=== PATIENT | female | born 1970 | race Caucasian/White ===

== ENCOUNTER 2016-08-20 08:07 | Emergency (ER) | payer OTHER ==
[~2016-08-20] VITALS: Ht 167.6 cm; Wt 99.8 kg
[2016-08-20] MEDS ORDERED: ADV250INH INH (08:22)
[2016-08-20] MEDS ORDERED: CETI10TA PO (08:22)
[2016-08-20] MEDS ORDERED: MONT10TA2 PO (08:22)
[2016-08-20] MEDS ORDERED: HYDR12.55 PO (08:22)
[2016-08-20] MEDS ORDERED: ADAL60TA PO (08:22)
[2016-08-20 08:57] LABS: BASO % 0.5 % (0.0-1.0); EOS # 0.7 K/mm3 (0.0-0.50); EOS % 8.5 % (0.0-3.0); LARGE UNSTAINED CELL # 0.2 K/mm3 (0.0-0.4); LARGE UNSTAINED CELL % 2.6 % (0.0-4.0); LYMPH # 1.8 K/mm3 (1.5-4.5); LYMPH % 22.9 % (24.0-44.0); MEAN CORPUSCULAR HEMOGLOBIN 30.9 pg (27.0-33.0); MEAN CORPUSCULAR HGB CONC 32.5 g/dl (32.0-36.5); MEAN CORPUSCULAR VOLUME 95.2 fl (80.0-96.0); MONO # 0.4 K/mm3 (0.0-0.8); MONO % 5.5 % (0.0-5.0); NEUTROPHILS # 4.8 K/mm3 (1.8-7.7); NEUTROPHILS % 59.9 % (36.0-66.0); PLATELET COUNT, AUTOMATED 327 k/mm3 (150-450); RED CELL DISTRIBUTION WIDTH 12.8 % (11.5-14.5)
[2016-08-20 09:24] LABS: ANION GAP 12 MEQ/L (8-16); BLOOD UREA NITROGEN 12 MG/DL (7-18); CALCIUM LEVEL 8.4 MG/DL (8.5-10.1); CARBON DIOXIDE LEVEL 25 MEQ/L (21-32); CHLORIDE LEVEL 103 MEQ/L (98-107); CREATININE FOR GFR 0.63 MG/DL (0.55-1.02); GLOMERULAR FILTRATION RATE > 60.0 (>58); GLUCOSE, FASTING 109 MG/DL (70-105); POTASSIUM SERUM 3.4 MEQ/L (3.5-5.1); SODIUM LEVEL 140 MEQ/L (136-145)
[2016-08-20 10:38] VITALS: BP 136/85
--- NOTE | 2016-08-20 10:42 | REP ---
Portable chest x-ray: Single view. History: Chest pain. Comparison chest x-ray November 26, 2014. Findings: EKG monitoring electrodes overlie the chest. The lungs are symmetrically aerated and remain clear. Pleural angles are sharp. Cardiomediastinal silhouette is unremarkable and unchanged. Impression: No active disease. Signed by Brandon Douglass MD 08/20/2016 10:58 A
--- NOTE | 2016-08-20 19:59 | ECGEPIP ---
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
== END 2016-08-20 10:40 | disposition home or self-care (01) ==
LOC: M ED 09:47
DX: R00.2 Palpitations (principal); R05 Cough

== ENCOUNTER → 2016-09-06 | Outpatient (CLI) | payer OTHER ==
[~2016-09-06] MED LIST: ADAL60TA PO; ADV250INH INH; CETI10TA PO; HYDR12.55 PO; MONT10TA2 PO
--- NOTE | 2016-09-06 19:25 | REP ---
CT study of the chest without IV contrast: History: Chronic cough, increased mucus production, night sweats. Comparison chest x-ray 08/20/2016. CT findings: There is an area of plate-like atelectasis in the anterobasal segment of the left lower lobe. This segmental bronchus shows amputation of its air column consistent with endobronchial inspissated mucoid material. Similarly, the segmental bronchus of the right lower lobe more posteriorly shows inspissated material filling its lumen. No atelectasis is seen in its distribution. There is some fibrosis versus atelectasis in the right middle lobe. No other endobronchial disease is appreciated. There is no evidence of bronchiectasis by CT criteria. No pleural or pericardial effusion is seen. No hilar or mediastinal mass or adenopathy is observed. There is a small accessory splenule beneath the spleen. There are clips in the gallbladder fossa. The visualized upper abdominal structures are otherwise unremarkable. In the lung young there are numerous small noncalcified pulmonary nodules. There were to calcified pulmonary nodules as well on the right. The noncalcified pulmonary nodules are predominately peripheral and range in size up to 6 mm. They are too numerous to count. No bony destructive lesion is seen. Impression: 1. Inspissated endobronchial material seen into segmental bronchi in the left lower lobe. 2. Innumerable noncalcified pulmonary nodules scattered throughout the lung parenchyma ranging up to 6 mm in size uncertain etiology. 3. Plate-like atelectasis left lower lobe. Consider pulmonary medicine evaluation. Signed by Brandon Douglass MD 09/07/2016 08:55 A
--- NOTE | 2016-09-07 08:53 | REP ---
MAXILLOFACIAL CT WITHOUT CONTRAST: HISTORY: Chronic cough. Mucosal thickening is present in the sinuses. There is complete opacification of the left frontal sinus. There is almost complete opacification of the ethmoid and left maxillary sinuses. Moderate mucosal thickening is present in the right maxillary sinus. Minimal mucosal thickening is present in the sphenoid and right frontal sinuses. Mucosal thickening involves the osteomeatal units. The middle and inferior nasal turbinates are partially paradoxical. There is minimal deviation of the nasal septum to the right. A spur is present arising from the left side of the nasal septum. The spur abuts the left middle nasal turbinate. The cribriform plate, medial roberto, of the orbits and optic canals are intact. The carotid canals form a segment of the posterolateral roberto of the sphenoid sinus. The sphenoid sinus septum inserts into the right internal carotid canal wall. IMPRESSION: Sinus mucosal thickening as described above. Signed by Clyde Cohen MD 09/07/2016 08:58 A
== END ==
LOC: M RAD 16:31
PROVIDERS: ATTEND Family Medicine
DX: R91.8 Other nonspecific abnormal finding of lung field (principal); R05 Cough

== ENCOUNTER → 2016-09-13 | Outpatient (REF) | payer OTHER ==
[2016-09-18 00:06] LABS: BLASTOMYCES ANTIBODY LEVEL Negative (Neg:<1:1); CRYPTOCOCCUS ANTIGEN SER Negative (Negative); HISTOPLASMOSIS ANTIBODY Negative (Neg:<1:1)
== END ==
LOC: M LAB REF 17:22
PROVIDERS: ATTEND Internal Medicine Pulmonary Disease
DX: R91.8 Other nonspecific abnormal finding of lung field (principal)

== ENCOUNTER → 2016-09-15 | Outpatient (REF) | payer OTHER | LOC: M LAB REF 18:17 | PROVIDERS: ATTEND Internal Medicine Pulmonary Disease | DX: R91.8 Other nonspecific abnormal finding of lung field (principal); R05 Cough ==

== ENCOUNTER → 2016-10-26 | Outpatient (CLI) | payer OTHER ==
--- NOTE | 2016-10-26 08:35 | PFTRPT ---
Tech: Jovany CASTANEDA RRT Age: 46 Sex: Female Race: Height: 66.00 Inches Weight: 220.00 Lbs BSA: 2.08 Diagnosis: R91.8 TECH NOTES: Test meet the ATS standards for acceptability and repeatability. The patient was given four puffs of albuterol for postbronchodilator. PULMONARY FUNCTION REPORT ORDERING PROVIDER: Severiano Clemons M.D. DATE OF SERVICE: 10/26/16 SPIROMETRY: Pre and post bronchodilator study of excellent technical quality. The forced vital capacity is normal. The FEV1 is borderline in proportion. The obstructive index is, therefore, borderline, as well. FLOW VOLUME LOOP: The expiratory limb of the flow volume loop raises a question of some nonspecific flow rate reductions. No significant bronchodilator response is identified. LUNG VOLUMES: The total lung capacity is borderline elevated. The residual volume does suggest a degree of air trapping. DIFFUSION CAPACITY: The diffusion capacity, although reduced, is appropriate for alveolar volume. HEMOGLOBIN: The hemoglobin is acceptable at 15.5. AIRWAY MECHANICS: Airways resistance and conductance are normal. IMPRESSION: Nonspecific flow ate reduction, probably on the basis of small airways dysfunction with underlying air trapping. Mild reduction in the absolute diffusion capacity. No significant bronchodilator response. Please correlate clinically. MTDD
== END ==
LOC: M CARPUL 08:00
PROVIDERS: ATTEND Internal Medicine Pulmonary Disease
DX: R91.8 Other nonspecific abnormal finding of lung field (principal)

== ENCOUNTER → 2016-10-27 | Outpatient (CLI) | payer OTHER ==
--- NOTE | 2016-10-27 14:33 | REP ---
Clinical: Abnormalities on recent chest CT . Comparison: 08/20/2016 . Technique: PA and lateral. Findings: The mediastinum and cardiac silhouette are normal. The lung young are clear and without acute consolidation, effusion, or pneumothorax. The skeletal structures are intact and normal. Impression: No acute cardiopulmonary process is appreciated by radiographic evaluation. Signed by Jayro Lora MD 10/27/2016 02:24 P
== END ==
LOC: M SMT 13:58
PROVIDERS: ATTEND Internal Medicine Pulmonary Disease
DX: R91.8 Other nonspecific abnormal finding of lung field (principal)

== ENCOUNTER → 2017-02-08 | Outpatient (CLI) | payer OTHER ==
--- NOTE | 2017-02-08 08:25 | REP ---
Clinical: Follow-up pulmonary nodules. Comparison: 09/06/2016. Findings: The bilateral lung young are relatively well aerated and symmetric. The previously noted inspissated material in the central left subsegmental bronchus has resolved and the tracheobronchial tree appears completely patent. Scattered nodules measuring up to 4.5 mm are again identified bilaterally and remain relatively stable. Current examination demonstrates central calcification within few of the nodules suggesting sequelae of prior granulomatous disease. No new nodules, mass lesions or increase size to the previously noted nodules is appreciated. No focal consolidation, pleural effusion/reaction or pneumothorax. No significant adenopathy. Mediastinum demonstrates normal thoracic aorta and heart/pericardium. Surrounding musculoskeletal structures are intact. Limited evaluation of the upper abdomen demonstrates normal bilateral adrenal glands and evidence for prior cholecystectomy. Impression: 1. Current examination demonstrates stable appearance to the previously identified nodules without increase in size or quantity. Few nodules now demonstrate central calcification suggesting sequelae of prior granulomatous disease. Follow-up and 9 - 12 months may be warranted to ensure stability and benignity. 2. No new significant mediastinal or pleuroparenchymal process appreciated. Signed by Jayro Lora MD 02/08/2017 08:17 A
== END ==
LOC: M RAD 07:23
PROVIDERS: ATTEND Internal Medicine Pulmonary Disease
DX: R91.8 Other nonspecific abnormal finding of lung field (principal)

== ENCOUNTER → 2017-08-10 | Outpatient (CLI) | payer OTHER | LOC: M RAD 08:15 | DX: R91.8 Other nonspecific abnormal finding of lung field (principal) ==

== ENCOUNTER → 2018-02-15 | Outpatient (CLI) | payer OTHER | LOC: M RAD 08:05 | DX: R91.8 Other nonspecific abnormal finding of lung field (principal) | CPT/HCPCS: 71250 ==

== ENCOUNTER → 2018-06-29 | Outpatient (CLI) | payer OTHER ==
--- NOTE | 2018-06-29 15:23 | REP ---
Right hip: Two views. History: Pain. Findings: AP and frog-leg views of the right hip demonstrate mild inferior acetabular spurring. Femoral head is smooth and rounded and hip joint spaces preserved. Periarticular soft tissue is unremarkable. Impression: Mild osteoarthritis right hip. No acute bony abnormality. Electronically Signed by Brandon Douglass MD 06/29/2018 03:15 P
== END ==
LOC: M LRY 13:49
PROVIDERS: ATTEND Nurse Practitioner Family
DX: M16.11 Unilateral primary osteoarthritis, right hip (principal); M25.551 Pain in right hip

== ENCOUNTER → 2018-06-29 | Outpatient (CLI) | payer OTHER | LOC: M LRY 13:42 | PROVIDERS: ATTEND Nurse Practitioner Family | DX: M25.551 Pain in right hip (principal); Z53.8 Procedure and treatment not carried out for other reasons ==

== ENCOUNTER → 2018-08-15 | Outpatient (CLI) | payer OTHER ==
--- NOTE | 2018-08-15 19:45 | REP ---
Clinical: Follow up abnormal findings. Technique: Axial noncontrast images from the thoracic inlet to the upper abdomen with coronal and sagittal re-formations. Comparison: 02/15/2018, 09/06/2016. Findings: Small scattered noncalcified nodular densities are appreciated bilaterally without significant change from prior examination. Previously noted area of atelectasis at the anterior left lower lobe has resolved. No significant acute consolidation. No pleural effusion or pneumothorax. Tracheobronchial tree is patent. No significant axillary, hilar, or mediastinal adenopathy. Mediastinum demonstrates normal stable thoracic aorta, pulmonary vasculature and heart/pericardium. Surrounding musculoskeletal structures are intact without focal osseous abnormality. Limited upper abdomen demonstrates normal bilateral adrenal glands and evidence for prior cholecystectomy. Impression: Small scattered noncalcified nodules essentially unchanged from prior examination 08/22/2016. Findings likely represent noncalcified granulomas disease. Electronically Signed by Jayro Lora MD 08/15/2018 07:36 P
== END ==
LOC: M RAD 14:17
PROVIDERS: ATTEND Internal Medicine Pulmonary Disease
DX: R91.8 Other nonspecific abnormal finding of lung field (principal)

== ENCOUNTER → 2018-09-09 | Outpatient (CLI) | payer OTHER ==
[~2018-09-09] MED LIST changes: +BREO1INH3 PO; +HYDR-3363 PO; +IRBE150T14; +METH1TAB40 PO; +PYRI1TAB5 PO; +TESS100C PO; +TIZA4TAB4 PO
--- NOTE | 2018-09-09 10:23 | REP ---
Clinical: Cough . Comparison: 10/27/2016 . Technique: PA and lateral. Findings: The mediastinum and cardiac silhouette are normal. The lung young demonstrate chronic stable changes without acute consolidation, effusion, or pneumothorax. The skeletal structures are intact and normal. Impression: 1. No acute cardiopulmonary process. Electronically Signed by Jayro Lora MD 09/09/2018 10:14 A
== END ==
LOC: M LRY 10:00
PROVIDERS: ATTEND Physician Assistant
DX: R05 Cough (principal); R52 Pain, unspecified

== ENCOUNTER → 2018-09-09 | Outpatient (REF) | payer OTHER | LOC: M SFHCLERA 10:19 | PROVIDERS: ATTEND Physician Assistant | DX: R39.9 Unspecified symptoms and signs involving the genitourinary system (principal) ==

== ENCOUNTER 2018-09-11 09:20 | Emergency (ER) | payer OTHER ==
[~2018-09-11] VITALS: Ht 167.6 cm; Wt 105.7 kg
[~2018-09-11 09:20] MED LIST changes: -BREO1INH3 PO; -HYDR-3363 PO; -IRBE150T14; -METH1TAB40 PO; -PYRI1TAB5 PO; -TESS100C PO; -TIZA4TAB4 PO
[2018-09-11] MEDS ORDERED: BREO1INH3 PO (09:31)
[2018-09-11] MEDS ORDERED: METH1TAB40 PO (09:31)
[2018-09-11] MEDS ORDERED: HYDR-3363 PO (09:31)
[2018-09-11] MEDS ORDERED: TIZA4TAB4 PO (09:31)
[2018-09-11] MEDS ORDERED: IRBE150T14 (09:57)
[2018-09-11] MEDS ORDERED: IPRATROPIUM 0.5MG/ALBUTEROL 2.5MG INH SOL UD 3ML (DUONEB)(J7620) NEB PRN (10:00)
[2018-09-11 10:28] LABS: URINE PREG TEST NEGATIVE (NEGATIVE)
--- NOTE | 2018-09-11 10:46 | REP ---
Lumbar spine five views: There are no comparisons. Vertebral body heights and alignment are normal. There is a bridging osteophyte anterolaterally on the right at at L 03/04, compatible with degenerative disc disease. There is disc space narrowing and L5 S1 compatible with degenerative disc disease. The disc spaces are otherwise unremarkable. There are Schmorl's nodes in the inferior endplate of L2, superior and and inferior end plates of L3, inferior endplate of L4 and superior endplate of L5. There is no spondylolysis. There is no spondylolisthesis. The pedicles and facets are unremarkable. The sacroiliac articulations are unremarkable. There are surgical clips in the abdominal right upper quadrant and in the abdomen on the right. Impression: Degenerative disc disease as described. Schmorl's nodes as described. Electronically Signed by Richi Castaneda MD 09/11/2018 10:38 A
[2018-09-11] MEDS ORDERED: TESS100C PO (11:04)
[2018-09-11] MEDS ORDERED: PYRI1TAB5 PO (11:04)
[2018-09-11 11:10] VITALS: BP 167/91
== END 2018-09-11 11:14 | disposition home or self-care (01) ==
LOC: M ED 09:20
DX: N28.89 Other specified disorders of kidney and ureter (principal); J06.9 Acute upper respiratory infection, unspecified; M54.5 Low back pain; N39.3 Stress incontinence (female) (male); I10 Essential (primary) hypertension; J45.909 Unspecified asthma, uncomplicated; Z87.440 Personal history of urinary (tract) infections; Z87.442 Personal history of urinary calculi; J32.9 Chronic sinusitis, unspecified; M51.36 Other intervertebral disc degeneration, lumbar region; M51.37 Other intervertebral disc degeneration, lumbosacral region; M51.46 Schmorl's nodes, lumbar region; Z79.899 Other long term (current) drug therapy; Z88.8 Allergy status to other drugs, medicaments and biological substances; Z88.5 Allergy status to narcotic agent; Z88.6 Allergy status to analgesic agent

== ENCOUNTER → 2018-11-02 | Outpatient (CLI) | payer OTHER ==
[~2018-11-02] MED LIST changes: +BREO1INH3 PO; +HYDR-3363 PO; +IRBE150T14; +METH1TAB40 PO; +PYRI1TAB5 PO; +TESS100C PO; +TIZA4TAB4 PO
--- NOTE | 2018-11-02 09:01 | REP ---
Maxillofacial CT without contrast History: Chronic pansinusitis Comparison: 09/06/2016 Mucosal thickening is present in the sinuses. There is complete opacification of the sinuses. Mucosal thickening involves the ostiomeatal units. The middle and inferior nasal turbinates are partially paradoxical. There is minimal deviation of the nasal septum to the right. A spur is present arising from the left side of the nasal septum. The spur abuts the left middle nasal turbinate. The cribriform plate , medial roberto of the orbits and optic canals are intact. The carotid canals form a segment of the posterolateral roberto of the sphenoid sinus. The sphenoid sinus septum inserts into the right internal carotid canal wall. Impression: Sinus mucosal thickening as described above. Electronically Signed by Clyde Cohen MD 11/02/2018 08:52 A
== END ==
LOC: M RAD 08:27
PROVIDERS: ATTEND Otolaryngology
DX: J32.4 Chronic pansinusitis (principal)

== ENCOUNTER → 2019-02-07 | Outpatient (CLI) | payer OTHER ==
[~2019-02-07] MED LIST changes: +BENA25CA4 PO; +PROAAER10 INH; +TIOT18INH INH
--- NOTE | 2019-02-07 08:12 | REP ---
MAXILLOFACIAL CT STUDY WITHOUT CONTRAST: HISTORY: Chronic pansinusitis. COMPARISON STUDY: November 02, 2018. FINDINGS: The frontal sinuses remain completely opacified. There is nearly complete opacification of the ethmoids with aeration in one anterior ethmoid sinus cell on the right. There is a tiny bubble of air in the right frontal sinus and there is a tiny bubble of air in the right sphenoid sinus. Otherwise, the sphenoid sinus air cells are completely opacified as well. The left maxillary sinus and right maxillary sinus contain only small quantities of air otherwise completely opacified as well. Mastoid aeration remains normal and symmetric. The nasal turbinates are symmetric. I cannot exclude nasal polyps superior and lateral to the middle turbinate. Bony nasal septum is essentially in the midline. The ostiomeatal complexes are obscured by mucosal thickening. No intraorbital or intracranial abnormality is seen. Deep facial soft tissues remain unremarkable. IMPRESSION: Advanced pansinusitis with nearly complete opacification of the sphenoid, ethmoid, frontal and maxillary sinuses. Mastoid aeration remains normal. Electronically Signed by Brandon Douglass MD 02/07/2019 09:53 A
== END ==
LOC: M RAD 06:58
PROVIDERS: ATTEND Otolaryngology
DX: J32.4 Chronic pansinusitis (principal)

== ENCOUNTER → 2019-02-08 | Day surgery (SDC) | payer OTHER ==
[~2019-02-08] VITALS: Ht 167.6 cm; Wt 101.8 kg
[~2019-02-08] MED LIST changes: +FAMOTIDINE INJ 20MG/2ML VIAL (S0028) IV ONE; +FAMOTIDINE/NS 20 MG/50 ML BAG (S0028) As Ordered ONE; +LIDOCAINE 2% INJ 100 MG/5 ML SDV (FOR ANES.) As Ordered ONE; +LIDOCAINE W/EPINEPHRINE 1% 20ML VIAL As Ordered ONE; +LR 1,000 ML IV ONE; +METHYLENE BLUE 0.5% (5MG/ML) 10 ML AMP (PROVAYBLUE)(Q9968 PER 1MG) As Ordered ONE; +MIDAZOLAM INJ 2 MG/2 ML VIAL (J2250) As Ordered ONE; +ONDANSETRON 4MG/2ML VIAL (J2405) As Ordered ONE; +OXYMETAZOLINE NASAL SPRAY (AFRIN) As Ordered ONE; +PROPOFOL 200 MG/20 ML VIAL As Ordered ONE; +ROCURONIUM BROMIDE 50 MG/5 ML VIAL As Ordered ONE; +dexameTHASONE 4 MG/ML 1ML VIAL (J1100) As Ordered ONE; +fentaNYL 100 MCG/2 ML INJECTION (J3010) As Ordered ONE
[2019-02-08 11:13] VITALS: BP 137/91
== END | disposition home or self-care (01) ==
LOC: M SDC 10:25
PROVIDERS: ATTEND Otolaryngology
DX: J01.40 Acute pansinusitis, unspecified (principal); J98.8 Other specified respiratory disorders; Z53.8 Procedure and treatment not carried out for other reasons
CPT/HCPCS: J1100; J2250; J3010

== ENCOUNTER 2019-02-27 06:15 | Day surgery (SDC) | payer OTHER ==
[~2019-02-27] VITALS: Ht 167.6 cm; Wt 102.1 kg
[~2019-02-27 06:15] MED LIST changes: -FAMOTIDINE INJ 20MG/2ML VIAL (S0028) IV ONE; -FAMOTIDINE/NS 20 MG/50 ML BAG (S0028) As Ordered ONE; -LIDOCAINE 2% INJ 100 MG/5 ML SDV (FOR ANES.) As Ordered ONE; -LIDOCAINE W/EPINEPHRINE 1% 20ML VIAL As Ordered ONE; -METHYLENE BLUE 0.5% (5MG/ML) 10 ML AMP (PROVAYBLUE)(Q9968 PER 1MG) As Ordered ONE; -MIDAZOLAM INJ 2 MG/2 ML VIAL (J2250) As Ordered ONE; -ONDANSETRON 4MG/2ML VIAL (J2405) As Ordered ONE; -OXYMETAZOLINE NASAL SPRAY (AFRIN) As Ordered ONE; -PROPOFOL 200 MG/20 ML VIAL As Ordered ONE; -ROCURONIUM BROMIDE 50 MG/5 ML VIAL As Ordered ONE; -dexameTHASONE 4 MG/ML 1ML VIAL (J1100) As Ordered ONE; -fentaNYL 100 MCG/2 ML INJECTION (J3010) As Ordered ONE
[2019-02-27 06:48] LABS: URINE PREG TEST NEGATIVE (NEGATIVE)
[2019-02-27] MEDS ORDERED: LACRILUBE (AKWA TEARS) OPHTH OINT 3.5 GM As Ordered ONE (06:54)
[2019-02-27] MEDS ORDERED: PROPOFOL 200 MG/20 ML VIAL As Ordered ONE ×2 (07:00→07:01)
[2019-02-27] MEDS ORDERED: MIDAZOLAM INJ 2 MG/2 ML VIAL (J2250) As Ordered ONE (07:02)
[2019-02-27] MEDS ORDERED: fentaNYL 100 MCG/2 ML INJECTION (J3010) As Ordered ONE ×2 (07:02→11:04)
[2019-02-27] MEDS ORDERED: ROCURONIUM BROMIDE 50 MG/5 ML VIAL As Ordered ONE (07:02)
[2019-02-27] MEDS ORDERED: LIDOCAINE 2% INJ 100 MG/5 ML SDV (FOR ANES.) As Ordered ONE (07:02)
[2019-02-27] MEDS ORDERED: dexameTHASONE 4 MG/ML 1ML VIAL (J1100) As Ordered ONE ×2 (07:03→07:50)
[2019-02-27] MEDS ORDERED: ONDANSETRON 4MG/2ML VIAL (J2405) As Ordered ONE ×2 (07:03→10:48)
[2019-02-27] MEDS ORDERED: METOCLOPRAMIDE INJ 10MG/2ML VIAL (J2765) As Ordered ONE (07:03)
[2019-02-27] MEDS ORDERED: HYDROmorphone HCL 2 MG/ML 1ML VIAL (J1170) As Ordered ONE (07:04)
[2019-02-27] MEDS ORDERED: SODIUM CHLORIDE 0.9% NASAL GEL 15GM (AYR) As Ordered ONE (07:04)
[2019-02-27] MEDS ORDERED: LIDOCAINE W/EPINEPHRINE 1% 20ML VIAL As Ordered ONE (07:05)
[2019-02-27] MEDS ORDERED: OXYMETAZOLINE NASAL SPRAY (AFRIN) As Ordered ONE (07:05)
[2019-02-27] MEDS ORDERED: METHYLENE BLUE 0.5% (5MG/ML) 10 ML AMP (PROVAYBLUE)(Q9968 PER 1MG) As Ordered ONE (07:05)
[2019-02-27] MEDS ORDERED: ACETAMINOPHEN 1000MG 100ML IV BTL (OFIRMEV) (J0131 PER 10MG) As Ordered ONE (07:16)
[2019-02-27] MEDS ORDERED: GLYCOPYRROLATE INJ 0.2 MG/ML 2 ML VIAL As Ordered ONE (07:59)
[2019-02-27] MEDS ORDERED: SUGAMMADEX SODIUM 500 MG/5 ML VIAL (BRIDION) As Ordered ONE (10:11)
[2019-02-27] MEDS: fentaNYL 100 MCG/2 ML INJECTION (J3010) IV PRN ×4 (11:00→11:40)
[2019-02-27] MEDS ORDERED: ALBUTEROL SULFATE 2.5 MG/0.5 ML INH NEB SOLN As Ordered ONE (11:13)
[2019-02-27] MEDS ORDERED: LR 1,000 ML IV SCH (12:00)
[2019-02-27] MEDS ORDERED: ONDANSETRON 4MG/2ML VIAL (J2405) IV PRN (12:00)
[2019-02-27] MEDS ORDERED: PERCOCET 5MG/325MG TAB As Ordered ONE ×2 (12:12→12:43)
[2019-02-27] MEDS: PERCOCET 5MG/325MG TAB PO PRN ×2 (12:15→12:45)
[2019-02-27] MEDS ORDERED: ALBUTEROL SULFATE 2.5 MG/0.5 ML INH NEB SOLN INH ONE (12:30)
[2019-02-27 14:15] VITALS: BP 129/74
--- NOTE | 2019-02-28 13:09 | RO ---
DATE OF PROCEDURE: 02/27/2019 PREOPERATIVE DIAGNOSIS: Chronic pansinusitis with Samter's triad, turbinate hypertrophy, nasal obstruction. POSTOPERATIVE DIAGNOSIS: Chronic pansinusitis with Samter's triad, turbinate hypertrophy, nasal obstruction. OPERATION PERFORMED: 1. Bilateral complete ethmoidectomies. 2. Bilateral endoscopic maxillary sinusotomy with biopsies of maxillary tissue as well as cultures. 3. Bilateral endoscopic sphenoidotomies. 4. Bilateral frontal balloon sinuplasties. 5. Bilateral inferior turbinate submucosal resection utilizing the Coblator. 6. Image Guidance with BrainLab SURGEON: Tucker Ruiz Jr, MD WATCH TRAIN INSPECTOR: ANESTHESIA: General via endotracheal tube by Dr. Reece and ART DEPARTMENT HEAD. INDICATIONS FOR PROCEDURE: Pansinusitis with Samter's triad. PROCEDURE IN DETAIL: The patient was given 10 mg of Decadron in the preop area. After the patient was prepped and draped in the usual fashion, a time-out was performed confirming the procedure as well as the patient. The Brainlab was then calibrated appropriately. First, it was registered, followed by registration of straight suction and curved suction, as well as, the pointer. Once registration was confirmed, inside the nasal cavity was tested. Sphenoid rostrum was touched and was showing excellent approximation. Lateral orbital rims, nasion as well as rhinion, as well as intra incisors were all correlating with excellent registration. At this point, attention then was drawn to decongest the nasal cavity with topical Afrin with pledgets, followed by injection of the base of the middle turbinates bilaterally with a 27 gauge needle, along with the uncinate process as well and then also into part of the polyps. Both middle turbinates were medialized and both inferior turbinates were lateralized. Attention initially was drawn to the left frontal region where utilizing the Ale device. The left frontal cannula was cannulated successfully with a focal finding which is easily mobile in the frontal sinus. The balloon was deployed and then was inflated up and to 12 cm for dilation. This was done sequentially. After this was done, the area was irrigated with saline. There was a little bit of mucopurulence that was suctioned out of the left nasal cavity. This was cultured. Next, attention then was drawn to the right side, which also was cannulated with the Ale device. Again, there was a focal movable light source that was present. The balloon was then deployed and inflated multiple times up to 12 cm and then released in a sequential fashion. The right frontal sinus was also irrigated with saline. There was no purulent discharge or mucoid discharge from this area. Attention then was drawn to the middle meatus where on the left side a microdebrider was utilized with a 4 mm straight shot. This was to expose the maxillary region. Then utilizing a maxillary seeker, the left maxillary sinusotomy site was identified and then utilizing a pediatric backbiter this was opened followed by direct straight through cut posteriorly in the maxillary sinus. There was obviously filled left polyps filling up the maxillary sinus. The complete ethmoidectomy was done on the left side. The Brainlab was used to test and document this as well. Next, a sphenoidotomy was done through the ethmoids into the sphenoidotomy site. This was documented with the Brainlab going into the sphenoid. The left endoscopic maxilla had what appeared to be a mucocele. but also multiple polyps in it. Samples of this tissue were taken. In a similar fashion, on the right side the maxillary seeker was used to identify the maxillary sinusotomy site and then utilizing the pediatric backbiter the uncinate process was removed and the microdebrider was carefully used as well as 45 degrees through cuts. A complete ethmoidectomy was done with the microdebrider as well as straight shot 4 mm with care to keep the rotating away from the lamina papyracea, but more posteriorly and inferiorly and then gradually working its way up and posteriorly. The sphenoid region was identified and was entered via the posterior lamella. Documentation with the Brainlab showed that it clearly went into that area. Small superior areas of ethmoid tissue were dissected and picked away and utilizing the Brainlab to make sure everything was in good approximation and identifying for the complete ethmoidectomy. The right maxillary sinusotomy also had some tissue that was removed from the maxillary sinus compatible with polyps. There were pictures photo documented as well. Again, documentation of the roof of the ethmoid as well as the sphenoidotomies sites were done with the Brainlab with the suction cannula in the sinus openings. At this point, after copious irrigation of the sinuses, bilateral inferior turbinate passes were done with the coblation device, two passes on each inferior turbinate, after they were lateralized and injected with 1% lidocaine and 1:100,000 epinephrine. A total of 9 mL was injected during the course of the procedure, but 1.5 in each inferior turbinate. After this was done, there appeared to be good hemostasis. Contour splints were placed in both maxillary sinusotomy sites followed by propel splints which were placed in the ethmoidectomy site. This was photo documented. Copious saline was used to hydrate these areas followed by NasaPore that was trimmed along its long axis and placed on the inferior with great care not to displace the propel splints. At this point, the operation was concluded. There were no problems. No complications. Estimated blood loss was 75 mL. MTDD
--- NOTE | 2019-02-28 20:59 | ECGEPIP ---
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
== END 2019-02-27 14:38 | disposition home or self-care (01) ==
LOC: M SDC 06:15
PROVIDERS: ATTEND Otolaryngology
DX: J32.4 Chronic pansinusitis (principal); J98.8 Other specified respiratory disorders; J34.3 Hypertrophy of nasal turbinates; J34.89 Other specified disorders of nose and nasal sinuses; J45.909 Unspecified asthma, uncomplicated; I10 Essential (primary) hypertension; K21.9 Gastro-esophageal reflux disease without esophagitis; F41.9 Anxiety disorder, unspecified; G47.30 Sleep apnea, unspecified; Z88.5 Allergy status to narcotic agent; Z88.8 Allergy status to other drugs, medicaments and biological substances; Z79.51 Long term (current) use of inhaled steroids; Z79.899 Other long term (current) drug therapy
CPT/HCPCS: 30802; 31255; 31267; 31296; 84703; 87070; 87075; 87077; 87186; 88304; 88305; 93005; C2625; J0131; J1100; J1170; J2250; J2405; J2765; J3010; Q9968

== ENCOUNTER → 2019-12-02 | Outpatient (CLI) | payer OTHER ==
[~2019-12-02] MED LIST changes: -LR 1,000 ML IV ONE; -MONT10TA2 PO; +MONT10TA4 PO
[2019-12-02 18:03] LABS: BASO # 0.1 10^3/uL (0.0-0.2); BASO % 0.4 % (0.0-1.0); EOS # 0.1 10^3/uL (0.0-0.5); EOS % 0.7 % (0.0-3.0); HEMATOCRIT 42.9 % (36.0-47.0); HEMOGLOBIN 14.2 g/dl (12.0-15.5); LYMPH # 4.5 10^3/uL (1.5-5.0); LYMPH % 34.7 % (24.0-44.0); MEAN CORPUSCULAR HEMOGLOBIN 31.9 pg (27.0-33.0); MEAN CORPUSCULAR HGB CONC 33.1 g/dl (32.0-36.5); MEAN CORPUSCULAR VOLUME 96.4 fl (80.0-96.0); MONO # 1.3 10^3/uL (0.0-0.8); MONO % 9.9 % (0.0-5.0); NEUTROPHILS % 53.8 % (36.0-66.0); PLATELET COUNT, AUTOMATED 415 10^3/uL (150-450); RED BLOOD COUNT 4.45 10^6/uL (4.00-5.40)
[2019-12-07 05:07] LABS: D001-IgE D pteronyssinus <0.10 kU/L (Class 0); E001-IgE Cat Epith/Dander < 0.10 kU/L (Class 0); E005-IgE Dog Dander < 0.10 kU/L (Class 0); G002-IgE Bermuda Grass < 0.10 kU/L (Class 0); G008-IgE Kentucky Bluegrass < 0.10 kU/L (Class 0); M001-IgE Penicillium chrysogen < 0.10 kU/L (Class 0); M002 IgE Cladosporium herbaru < 0.10 kU/L (Class 0); M003 IgE Aspergillus fumigatu < 0.10 kU/L (Class 0); M006-IgE Alternaria alternata < 0.10 kU/L (Class 0); T001-IgE Maple/Box Elder < 0.10 kU/L (Class 0); T003-IgE Common Silver Birch < 0.10 kU/L (Class 0); T006-IgE Cedar, Mountain < 0.10 kU/L (Class 0); T007-IgE Oak, White < 0.10 kU/L (Class 0); T008-IgE Elm, American < 0.10 kU/L (Class 0); T015-IgE Ash, White < 0.10 kU/L (Class 0); T041-IgE Hickory, White < 0.10 kU/L (Class 0); T070-IgE White Mulberry < 0.10 kU/L (Class 0); W001-IgE Ragweed, Short < 0.10 kU/L (Class 0); W009-IgE Plantain, English < 0.10 kU/L (Class 0); W014-IgE Pigweed, Rough < 0.10 kU/L (Class 0); W018-IgE Sheep Sorrel < 0.10 kU/L (Class 0)
== END ==
LOC: M PLALAB 14:43
PROVIDERS: ATTEND Internal Medicine Pulmonary Disease
DX: J45.40 Moderate persistent asthma, uncomplicated (principal)

== ENCOUNTER → 2020-01-23 | Outpatient (CLI) | payer OTHER ==
[2020-01-23 14:38] LABS: BASO # 0.1 10^3/uL (0.0-0.2); BASO % 0.9 % (0.0-1.0); EOS # 0.9 10^3/uL (0.0-0.5); EOS % 11.8 % (0.0-3.0); HEMATOCRIT 44.7 % (36.0-47.0); HEMOGLOBIN 14.7 g/dl (12.0-15.5); LYMPH # 2.4 10^3/uL (1.5-5.0); LYMPH % 31.8 % (24.0-44.0); MEAN CORPUSCULAR HGB CONC 32.9 g/dl (32.0-36.5); MEAN CORPUSCULAR VOLUME 97.4 fl (80.0-96.0); MONO # 0.8 10^3/uL (0.0-0.8); MONO % 10.3 % (0.0-5.0); NEUTROPHILS # 3.3 10^3/uL (1.5-8.5); NEUTROPHILS % 44.9 % (36.0-66.0); PLATELET COUNT, AUTOMATED 374 10^3/uL (150-450); RED BLOOD COUNT 4.59 10^6/uL (4.00-5.40); WHITE BLOOD COUNT 7.4 10^3/uL (4.0-10.0)
[2020-01-26 06:36] LABS: D001-IgE D pteronyssinus <0.10 kU/L (Class 0); E001-IgE Cat Epith/Dander < 0.10 kU/L (Class 0); E005-IgE Dog Dander < 0.10 kU/L (Class 0); G002-IgE Bermuda Grass < 0.10 kU/L (Class 0); G008-IgE Kentucky Bluegrass < 0.10 kU/L (Class 0); M001-IgE Penicillium chrysogen < 0.10 kU/L (Class 0); M002 IgE Cladosporium herbaru < 0.10 kU/L (Class 0); M003 IgE Aspergillus fumigatu < 0.10 kU/L (Class 0); M006-IgE Alternaria alternata < 0.10 kU/L (Class 0); T001-IgE Maple/Box Elder < 0.10 kU/L (Class 0); T003-IgE Common Silver Birch < 0.10 kU/L (Class 0); T006-IgE Cedar, Mountain < 0.10 kU/L (Class 0); T007-IgE Oak, White < 0.10 kU/L (Class 0); T008-IgE Elm, American < 0.10 kU/L (Class 0); T015-IgE Ash, White < 0.10 kU/L (Class 0); T041-IgE Hickory, White < 0.10 kU/L (Class 0); T070-IgE White Mulberry < 0.10 kU/L (Class 0); W001-IgE Ragweed, Short < 0.10 kU/L (Class 0); W009-IgE Plantain, English < 0.10 kU/L (Class 0); W014-IgE Pigweed, Rough < 0.10 kU/L (Class 0); W018-IgE Sheep Sorrel < 0.10 kU/L (Class 0)
== END ==
LOC: M PLALAB 11:46
PROVIDERS: ATTEND Internal Medicine Pulmonary Disease
DX: D72.1 Eosinophilia (principal); J45.40 Moderate persistent asthma, uncomplicated

== ENCOUNTER → 2020-07-17 | Outpatient (CLI) | payer OTHER ==
[~2020-07-17] MED LIST changes: +E-Z-GAS II EFFERVESCENT PACKET (SODIUM BICARB./CITRIC ACID/SIMETHICONE) As Ordered ONE; +E-Z-HD 98% w/w 340GM SUSP BTL As Ordered ONE; +E-Z-PAQUE 96% w/w SUSP 176GM BTL As Ordered ONE; +METH-1164 PO; -METH1TAB40 PO; +MONT10TA10 PO; -MONT10TA4 PO
--- NOTE | 2020-07-17 17:33 | REP ---
INDICATION: DYSPHAGIA, HX EOSINOPHILIA UPPER AIRWAY. COMPARISON: None. TECHNIQUE: This procedure was performed under the direct supervision of Dr. Douglass. Images were reviewed with Dr. Douglass. Liquid barium and gas producing granules were given in the erect position as well as liquid barium in the prone oblique positions in order to perform a double contrast esophagram examination. 1 minute of fluoro time was utilized for this procedure. FINDINGS: A single view PA chest x-ray is submitted as a advance scout film. The superior mediastinal structures are midline. The heart size is within normal limits. The lungs are clear. The oral and pharyngeal stages of deglutition were unremarkable. Esophageal transport is prompt and efficient and there is no evidence of esophagitis, stricture, mucosal ring, or hiatal hernia. There is gastroesophageal reflux demonstrated to below the level of the lucas. IMPRESSION: There is gastroesophageal reflux demonstrated to below the level of the lucas. Otherwise, unremarkable double-contrast esophagram examination. <Electronically signed by Kenn De Jesus > 07/17/20 [id number] <Electronically signed by Carlos Douglass > 07/17/20 [id number]
== END ==
LOC: M RAD 08:15
PROVIDERS: ATTEND Otolaryngology
DX: K21.9 Gastro-esophageal reflux disease without esophagitis (principal)

== ENCOUNTER → 2020-08-03 | Outpatient (CLI) | payer OTHER ==
[~2020-08-03] MED LIST changes: -E-Z-GAS II EFFERVESCENT PACKET (SODIUM BICARB./CITRIC ACID/SIMETHICONE) As Ordered ONE; -E-Z-HD 98% w/w 340GM SUSP BTL As Ordered ONE; -E-Z-PAQUE 96% w/w SUSP 176GM BTL As Ordered ONE
--- NOTE | 2020-08-03 16:50 | REPVR ---
PROCEDURE INFORMATION: Exam: CT Maxillofacial Without Contrast, Sinus Exam date and time: 08/03/2020 4:25 PM Age: 49 years old Clinical indication: Sinusitis; Chronic; Additional info: Chronic pansinusitis TECHNIQUE: Imaging protocol: CT Maxillofacial without contrast. Focus on the sinuses. Axial and coronal reformatted images were created and reviewed. Radiation optimization: All CT scans at this facility use at least one of these dose optimization techniques: automated exposure control; mA and/or kV adjustment per patient size (includes targeted exams where dose is matched to clinical indication); or iterative reconstruction. COMPARISON: CT BRAIN LAB SINUSES 02/07/2019 7:09 AM FINDINGS: Frontal sinuses: Almost completely opacified. No air-fluid levels. Ethmoid air cells: Almost completely opacified. No air-fluid levels. Sphenoid sinuses: Completely opacified. No air-fluid levels. Maxillary sinuses: Bilateral medial antrectomies. Moderate polypoid left maxillary sinus mucosal thickening. Mild to moderate polypoid right maxillary sinus mucosal thickening No air-fluid levels. Partially obstructed ostiomeatal units. Nasal cavity/Septum: Unremarkable. Orbital cavity: Orbits are normal. Globes are unremarkable. Bones/joints: Unremarkable. Soft tissues: Unremarkable. IMPRESSION: Severe chronic pansinusitis, as described above. Electronically signed by: Redd Bonilla On 08/03/2020 16:51:03 PM
== END ==
LOC: M RAD 16:08
PROVIDERS: ATTEND Physician Assistant Medical
DX: J32.4 Chronic pansinusitis (principal)

== ENCOUNTER 2020-08-17 12:18 | Emergency (ER) | payer OTHER ==
[~2020-08-17] VITALS: Ht 167.6 cm; Wt 102.8 kg
[2020-08-17] MEDS ORDERED: DUPI300I (12:33)
[2020-08-17] MEDS ORDERED: OMEP-221 (12:38)
[2020-08-17] MEDS ORDERED: ASPI325T55 PO (12:38)
[2020-08-17] MEDS ORDERED: GI COCKTAIL 50ML BTL(HYOSCYAMINE/MAALOX/LIDOCAINE VISCOUS)(1:3:1) PO ONE (12:55)
[2020-08-17 13:15] LABS: BASO # 0.1 10^3/uL (0.0-0.2); BASO % 1.2 % (0.0-1.0); EOS # 0.7 10^3/uL (0.0-0.5); EOS % 9.7 % (0.0-3.0); HEMATOCRIT 42.9 % (36.0-47.0); HEMOGLOBIN 13.7 g/dl (12.0-15.5); LYMPH # 2.6 10^3/uL (1.5-5.0); LYMPH % 36.3 % (24.0-44.0); MEAN CORPUSCULAR HEMOGLOBIN 30.6 pg (27.0-33.0); MEAN CORPUSCULAR HGB CONC 31.9 g/dl (32.0-36.5); MONO # 0.7 10^3/uL (0.0-0.8); MONO % 9.7 % (2.0-8.0); NEUTROPHILS # 3.1 10^3/uL (1.5-8.5); NEUTROPHILS % 43.1 % (36.0-66.0); PLATELET COUNT, AUTOMATED 336 10^3/uL (150-450); RED BLOOD COUNT 4.47 10^6/uL (4.00-5.40); WHITE BLOOD COUNT 7.2 10^3/uL (4.0-10.0)
--- NOTE | 2020-08-17 13:18 | REP ---
INDICATION: CHEST PAIN. COMPARISON: Comparison chest x-ray September 09, 2018. TECHNIQUE: Portable upright AP chest radiograph. FINDINGS: The lungs are well inflated and free of infiltrate. Pleural angles are sharp. Heart size is normal. Pulmonary vasculature is not increased. EKG monitoring electrodes are seen. IMPRESSION: No active disease. <Electronically signed by Carlos Douglass > 08/17/20 [id number]
[2020-08-17 13:55] LABS: ALBUMIN 3.6 GM/DL (3.2-5.2); ALT/SGPT 23 U/L (12-78); BILIRUBIN,DIRECT < 0.1 MG/DL (0.0-0.2); BILIRUBIN,TOTAL 0.3 MG/DL (0.2-1.0); BLOOD UREA NITROGEN 15 MG/DL (7-18); CALCIUM LEVEL 9.1 MG/DL (8.5-10.1); CARBON DIOXIDE LEVEL 26 MEQ/L (21-32); CHLORIDE LEVEL 107 MEQ/L (98-107); CK-MB VALUE MASS < 1.0 NG/ML (<3.6); CPK CREATINE PHOSPHOKINASE 30 U/L (26-192); CREATININE FOR GFR 0.56 MG/DL (0.55-1.30); GLOMERULAR FILTRATION RATE > 60.0 (>58); GLUCOSE, FASTING 89 MG/DL (70-100); LIPASE 111 U/L (73-393); MB/CK RELATIVE INDEX 3.33 (< OR =4); NT-PRO BNP 46 PG/ML (<125); POTASSIUM SERUM 4.4 MEQ/L (3.5-5.1); SODIUM LEVEL 139 MEQ/L (136-145); TOTAL PROTEIN 6.9 GM/DL (6.4-8.2); TROPONIN I < 0.02 NG/ML (< 0.10)
[2020-08-17 15:14] VITALS: BP 149/74
--- NOTE | 2020-08-17 22:13 | ECGEPIP ---
[facility] - ED Test Date: 2020-08-17 Pat Name: LEANNA CORONEL Department: Room: - Gender: Female Ward Helper: DANIELLA : 1970 Requested By: SELVIN BROWN Order Number: [id number] Reading MD: Selvin Rodrigues Measurements Intervals [place] Rate: 60 P: 59 [place]: 164 QRS: 10 QRSD: 96 T: 13 QT: 454 QTc: 454 Interpretive Statements Normal sinus rhythm Similar to tracing done 02-27-19 Electronically Signed on 08-17-2020 22:13:37 EDT by Selvin Rodrigues
== END 2020-08-17 15:15 | disposition home or self-care (01) ==
LOC: M ED 12:18
DX: R07.89 Other chest pain (principal); I10 Essential (primary) hypertension; J45.909 Unspecified asthma, uncomplicated; K21.9 Gastro-esophageal reflux disease without esophagitis; Z87.891 Personal history of nicotine dependence; F12.10 Cannabis abuse, uncomplicated; Z79.82 Long term (current) use of aspirin; Z79.899 Other long term (current) drug therapy; Z88.8 Allergy status to other drugs, medicaments and biological substances; Z88.5 Allergy status to narcotic agent; Z88.6 Allergy status to analgesic agent

== ENCOUNTER → 2021-08-19 | Outpatient (CLI) | payer OTHER ==
[~2021-08-19] MED LIST changes: +ASPI325T55 PO; +DUPI300I; -MONT10TA10 PO; +MONT10TA97 PO; +OMEP40CA5; +TIZA10TA PO; -TIZA4TAB4 PO
[2021-08-19 11:24] LABS: BASO # 0.1 10^3/uL (0.0-0.2); BASO % 0.9 % (0.0-1.0); EOS # 0.8 10^3/uL (0.0-0.5); EOS % 8.3 % (0.0-3.0); HEMATOCRIT 38.7 % (36.0-47.0); HEMOGLOBIN 12.4 g/dl (12.0-15.5); LYMPH % 32.3 % (24.0-44.0); MEAN CORPUSCULAR HEMOGLOBIN 29.1 pg (27.0-33.0); MEAN CORPUSCULAR VOLUME 90.8 fl (80.0-96.0); MONO # 0.8 10^3/uL (0.0-0.8); MONO % 8.2 % (2.0-8.0); NEUTROPHILS # 4.7 10^3/uL (1.5-8.5); NEUTROPHILS % 50.1 % (36.0-66.0); PLATELET COUNT, AUTOMATED 461 10^3/uL (150-450); RED BLOOD COUNT 4.26 10^6/uL (4.00-5.40); WHITE BLOOD COUNT 9.4 10^3/uL (4.0-10.0)
[2021-08-19 11:48] LABS: ERYTHROCYTE SEDIMENTATION RATE 48 mm/hr (0-30)
[2021-08-19 14:09] LABS: ALBUMIN 3.5 GM/DL (3.2-5.2); ALT/SGPT 15 U/L (12-78); BILIRUBIN,TOTAL 0.3 MG/DL (0.2-1.0); BLOOD UREA NITROGEN 14 MG/DL (7-18); C REACTIVE PROTEIN QUANTITATIV 3.33 MG/DL (0.00-0.30); CALCIUM LEVEL 9.2 MG/DL (8.5-10.1); CARBON DIOXIDE LEVEL 27 MEQ/L (21-32); CHLORIDE LEVEL 106 MEQ/L (98-107); CREATININE FOR GFR 0.52 MG/DL (0.55-1.30); GLOMERULAR FILTRATION RATE > 60.0 (>51); GLUCOSE, FASTING 89 MG/DL (70-100); POTASSIUM SERUM 4.4 MEQ/L (3.5-5.1); RHEUMATOID FACTOR QUANT < 10.0 IU/ML (<15.0); SODIUM LEVEL 138 MEQ/L (136-145); TOTAL PROTEIN 6.8 GM/DL (6.4-8.2)
[2021-08-19 14:28] LABS: HEPATITIS B SURFACE ANTIGEN NEGATIVE (NEGATIVE)
[2021-08-19 14:57] LABS: HEPATITIS C VIRUS ABY INDEX 0.2 INDEX (<0.8)
[2021-08-26 23:12] LABS: ANA (HEP2) Negative (.); CYCLIC CITRULLINATED PEPTIDE 8 units (0-19); HEPATITIS B CORE ANTIBODY IGG Negative (Negative); HLA-B27 Negative (.)
== END ==
LOC: M RAD 09:17
PROVIDERS: ATTEND Internal Medicine Rheumatology
DX: L40.8 Other psoriasis (principal); M19.041 Primary osteoarthritis, right hand; M19.042 Primary osteoarthritis, left hand; M51.37 Other intervertebral disc degeneration, lumbosacral region
CPT/HCPCS: 36415; 72040; 72072; 72114; 72202; 73130; 73630; 80053; 81374; 85025; 85652; 86038; 86140; 86200; 86431; 86480; 86704; 86803; 87340; G0463

== ENCOUNTER → 2021-10-05 | Outpatient (CLI) | payer OTHER ==
[2021-10-05 14:22] LABS: BASO % 0.2 % (0.0-1.0); EOS % 0.1 % (0.0-3.0); HEMATOCRIT 42.8 % (36.0-47.0); HEMOGLOBIN 13.9 g/dl (12.0-15.5); LYMPH # 1.3 10^3/uL (1.5-5.0); LYMPH % 10.5 % (24.0-44.0); MEAN CORPUSCULAR HEMOGLOBIN 30.1 pg (27.0-33.0); MEAN CORPUSCULAR HGB CONC 32.5 g/dl (32.0-36.5); MEAN CORPUSCULAR VOLUME 92.6 fl (80.0-96.0); MONO # 0.4 10^3/uL (0.0-0.8); MONO % 2.8 % (2.0-8.0); NEUTROPHILS # 10.8 10^3/uL (1.5-8.5); NEUTROPHILS % 85.9 % (36.0-66.0); PLATELET COUNT, AUTOMATED 448 10^3/uL (150-450); RED BLOOD COUNT 4.62 10^6/uL (4.00-5.40); WHITE BLOOD COUNT 12.5 10^3/uL (4.0-10.0)
[2021-10-05 14:59] LABS: ALBUMIN 3.6 GM/DL (3.2-5.2); ALT/SGPT 17 U/L (12-78); BILIRUBIN,TOTAL 0.3 MG/DL (0.2-1.0); BLOOD UREA NITROGEN 19 MG/DL (7-18); C REACTIVE PROTEIN QUANTITATIV 2.87 MG/DL (0.00-0.30); CALCIUM LEVEL 9.7 MG/DL (8.5-10.1); CARBON DIOXIDE LEVEL 25 MEQ/L (21-32); CHLORIDE LEVEL 105 MEQ/L (98-107); ERYTHROCYTE SEDIMENTATION RATE 44 mm/hr (0-30); GLOMERULAR FILTRATION RATE > 60.0 (>51); GLUCOSE, FASTING 105 MG/DL (70-100); POTASSIUM SERUM 4.4 MEQ/L (3.5-5.1); SODIUM LEVEL 139 MEQ/L (136-145); TOTAL PROTEIN 7.2 GM/DL (6.4-8.2)
== END ==
LOC: M LAB 13:43
PROVIDERS: ATTEND Internal Medicine Rheumatology
DX: M19.91 Primary osteoarthritis, unspecified site (principal); L40.8 Other psoriasis

== ENCOUNTER → 2021-11-05 | Outpatient (CLI) | payer OTHER ==
[2021-11-05 10:20] LABS: BASO # 0.1 10^3/uL (0.0-0.2); BASO % 0.6 % (0.0-1.0); EOS # 0.2 10^3/uL (0.0-0.5); EOS % 1.8 % (0.0-3.0); HEMATOCRIT 43.2 % (36.0-47.0); HEMOGLOBIN 13.9 g/dl (12.0-15.5); LYMPH # 3.2 10^3/uL (1.5-5.0); LYMPH % 31.8 % (24.0-44.0); MEAN CORPUSCULAR HEMOGLOBIN 29.6 pg (27.0-33.0); MEAN CORPUSCULAR HGB CONC 32.2 g/dl (32.0-36.5); MEAN CORPUSCULAR VOLUME 92.1 fl (80.0-96.0); MONO # 0.8 10^3/uL (0.0-0.8); MONO % 7.9 % (2.0-8.0); NEUTROPHILS # 5.8 10^3/uL (1.5-8.5); NEUTROPHILS % 57.6 % (36.0-66.0); PLATELET COUNT, AUTOMATED 402 10^3/uL (150-450); RED BLOOD COUNT 4.69 10^6/uL (4.00-5.40); WHITE BLOOD COUNT 10.1 10^3/uL (4.0-10.0)
[2021-11-05 10:39] LABS: ALBUMIN 3.5 GM/DL (3.2-5.2); ALT/SGPT 17 U/L (12-78); BILIRUBIN,TOTAL 0.3 MG/DL (0.2-1.0); BLOOD UREA NITROGEN 16 MG/DL (7-18); C REACTIVE PROTEIN QUANTITATIV 1.19 MG/DL (0.00-0.30); CALCIUM LEVEL 9.5 MG/DL (8.5-10.1); CARBON DIOXIDE LEVEL 27 MEQ/L (21-32); CHLORIDE LEVEL 109 MEQ/L (98-107); GLOMERULAR FILTRATION RATE > 60.0 (>51); GLUCOSE, FASTING 101 MG/DL (70-100); POTASSIUM SERUM 3.7 MEQ/L (3.5-5.1); SODIUM LEVEL 143 MEQ/L (136-145); TOTAL PROTEIN 7.2 GM/DL (6.4-8.2)
[2021-11-05 11:01] LABS: ERYTHROCYTE SEDIMENTATION RATE 25 mm/hr (0-30)
== END ==
LOC: M LAB 09:28
PROVIDERS: ATTEND Internal Medicine Rheumatology
DX: M19.90 Unspecified osteoarthritis, unspecified site (principal); L40.8 Other psoriasis

== ENCOUNTER → 2022-05-13 | Outpatient (CLI) | payer OTHER ==
[2022-05-13 10:21] LABS: BASO # 0.1 10^3/uL (0.0-0.2); BASO % 0.6 % (0.0-1.0); EOS # 0.2 10^3/uL (0.0-0.5); EOS % 1.6 % (0.0-3.0); HEMATOCRIT 40.5 % (36.0-47.0); HEMOGLOBIN 12.6 g/dl (12.0-15.5); LYMPH # 2.6 10^3/uL (1.5-5.0); LYMPH % 24.7 % (24.0-44.0); MEAN CORPUSCULAR HGB CONC 31.1 g/dl (32.0-36.5); MEAN CORPUSCULAR VOLUME 99.5 fl (80.0-96.0); MONO % 9.1 % (2.0-8.0); NEUTROPHILS # 6.7 10^3/uL (1.5-8.5); NEUTROPHILS % 63.6 % (36.0-66.0); PLATELET COUNT, AUTOMATED 429 10^3/uL (150-450); RED BLOOD COUNT 4.07 10^6/uL (4.00-5.40); WHITE BLOOD COUNT 10.5 10^3/uL (4.0-10.0)
[2022-05-13 10:52] LABS: ALBUMIN 3.2 G/DL (3.2-5.2); ALKALINE PHOSPHATASE 71 U/L (46-116); ALT/SGPT 11 U/L (7.0-40); AST/SGOT 12 U/L (<34); BILIRUBIN,TOTAL 0.2 MG/DL (0.3-1.2); BLOOD UREA NITROGEN 18 MG/DL (9-23); CALCIUM LEVEL 8.9 MG/DL (8.5-10.1); CARBON DIOXIDE LEVEL 24 MMOL/L (20-31); CHLORIDE LEVEL 108 MMOL/L (98-107); CREATININE FOR GFR 0.56 MG/DL (0.55-1.30); GLOMERULAR FILTRATION RATE > 60.0 (>51); GLUCOSE, FASTING 91 MG/DL (60-100); POTASSIUM SERUM 4.5 MMOL/L (3.5-5.1); SODIUM LEVEL 141 MMOL/L (136-145); TOTAL PROTEIN 6.3 G/DL (5.7-8.2)
[2022-05-13 11:29] LABS: ERYTHROCYTE SEDIMENTATION RATE 40 mm/hr (0-30)
== END ==
LOC: M LAB 09:47
PROVIDERS: ATTEND Internal Medicine Rheumatology
DX: M19.90 Unspecified osteoarthritis, unspecified site (principal); L40.8 Other psoriasis; Z79.899 Other long term (current) drug therapy

== ENCOUNTER → 2022-08-09 | Outpatient (CLI) | payer OTHER ==
[2022-08-09 15:53] LABS: BASO # 0.1 10^3/uL (0.0-0.2); BASO % 0.5 % (0.0-1.0); EOS # 0.2 10^3/uL (0.0-0.5); EOS % 1.3 % (0.0-3.0); HEMATOCRIT 41.4 % (36.0-47.0); HEMOGLOBIN 13.2 g/dl (12.0-15.5); LYMPH # 2.3 10^3/uL (1.5-5.0); LYMPH % 19.4 % (24.0-44.0); MEAN CORPUSCULAR HEMOGLOBIN 30.8 pg (27.0-33.0); MEAN CORPUSCULAR HGB CONC 31.9 g/dl (32.0-36.5); MEAN CORPUSCULAR VOLUME 96.5 fl (80.0-96.0); MONO # 0.8 10^3/uL (0.0-0.8); MONO % 6.4 % (2.0-8.0); NEUTROPHILS # 8.4 10^3/uL (1.5-8.5); PLATELET COUNT, AUTOMATED 366 10^3/uL (150-450); RED BLOOD COUNT 4.29 10^6/uL (4.00-5.40); WHITE BLOOD COUNT 11.7 10^3/uL (4.0-10.0)
[2022-08-09 16:26] LABS: ALBUMIN 3.4 G/DL (3.2-5.2); ALKALINE PHOSPHATASE 71 U/L (46-116); ALT/SGPT 43 U/L (7.0-40); AST/SGOT 30 U/L (<34); BILIRUBIN,TOTAL 0.4 MG/DL (0.3-1.2); BLOOD UREA NITROGEN 16 MG/DL (9-23); CALCIUM LEVEL 8.7 MG/DL (8.5-10.1); CARBON DIOXIDE LEVEL 29 MMOL/L (20-31); CHLORIDE LEVEL 104 MMOL/L (98-107); CREATININE FOR GFR 0.62 MG/DL (0.55-1.30); GLOMERULAR FILTRATION RATE > 60.0 (>51); GLUCOSE, FASTING 94 MG/DL (60-100); POTASSIUM SERUM 4.2 MMOL/L (3.5-5.1); SODIUM LEVEL 140 MMOL/L (136-145); TOTAL PROTEIN 6.6 G/DL (5.7-8.2)
[2022-08-09 18:27] LABS: ERYTHROCYTE SEDIMENTATION RATE 57 mm/hr (0-30)
== END ==
LOC: M LAB 15:06
PROVIDERS: ATTEND Internal Medicine Rheumatology
DX: L40.50 Arthropathic psoriasis, unspecified (principal); L40.8 Other psoriasis; M15.9 Polyosteoarthritis, unspecified; Z79.899 Other long term (current) drug therapy

== ENCOUNTER → 2023-05-17 | Outpatient (REF) | payer OTHER | LOC: M SFHCRHEU 14:57 | PROVIDERS: ATTEND Internal Medicine Rheumatology | DX: L40.50 Arthropathic psoriasis, unspecified (principal); L40.8 Other psoriasis; Z79.899 Other long term (current) drug therapy; M15.9 Polyosteoarthritis, unspecified; Z53.9 Procedure and treatment not carried out, unspecified reason ==